=== PATIENT | male | born 1970 | race Caucasian/White ===

== ENCOUNTER 2019-06-10 06:02 | Emergency (ER) | payer SELFPAY ==
[2019-06-10] MEDS ORDERED: ASPIRIN 81 MG CHEWABLE TABLET PO ONE (06:04)
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
[2019-06-10 06:14] LABS: ABSOLUTE NEUTROPHIL COUNT 5.57; BASO % 0.1 % (0-6); HEMATOCRIT 48.4 % (42.0-52.0); HEMOGLOBIN 16.3 gm/dl (14.0-18.0); LYMPH % 20.7 % (16-45); MEAN CELL VOLUME 88.5 fl (81-97); MEAN CORPUSCULAR HEMOGLOBIN 29.8 pg (27-33); MEAN CORPUSCULAR HGB CONC 33.7 g/dl (32-36); MEAN PLATELET VOLUME 8.9 fl (7.4-10.4); MONO % 8.2 % (0-9); PLATELET COUNT 352 K/uL (130-400); RED BLOOD COUNT 5.47 M/uL (4.40-5.70); RED CELL DISTRIBUTION WIDTH 13.7 % (11.5-14.5)
[2019-06-10 06:23] LABS: BLOOD UREA NITROGEN 12 mg/dL (6-20); CREATININE 0.7 mg/dL (0.7-1.2); EST GLOMERULAR FILTRATION RATE > 60 mL/min
[2019-06-10 06:24] LABS: TOTAL PROTEIN 6.9 g/dL (6.6-8.7)
[2019-06-10 06:26] LABS: GLUCOSE,RANDOM 101 mg/dL (74-109)
[2019-06-10 06:28] LABS: ALB/GLOB RATIO 1.9 (1.1-1.8); ALBUMIN 4.5 g/dL (4.0-5.0); ALKALINE PHOSPHATASE 80 U/L (40-129); ALT/SGPT 34 U/L (<41); AST/SGOT 25 U/L (10.0-50.0)
[2019-06-10] MEDS ORDERED: KETOROLAC 30 MG/ML VIAL IVP ONE (06:31)
[2019-06-10] MEDS ORDERED: METHYLPREDNISOLONE PF 125MG/VIAL IVP ONE (07:00)
--- NOTE | 2019-06-12 09:34 | RADIOLOGY REPORT ---
EXAM: CHEST, TWO VIEWS HISTORY: PATIENT HAS CHEST PAIN. TECHNIQUE: Two views of the chest are provided along with comparison x-ray of the right shoulder done on 10/09/08. FINDINGS: The cardiomediastinal silhouette is within normal limits for size and contour. The eddie appear unremarkable. There is no radiographic evidence of a focal infiltrate or pleural effusion. No pneumothorax is noted. Within the left lower lobe, on the PA projection only, there is an 8 mm nodular density. I suspect this finding likely represent a nipple shadow. If there is further clinical concern then a follow-up PA and lateral view of the chest can be obtained in six months to document stability of finding. IMPRESSION: 1. NO RADIOGRAPHIC EVIDENCE OF AN ACUTE INTRATHORACIC PROCESS. 2. A NODULAR DENSITY IS NOTED WITHIN THE LEFT LOWER LOBE WHICH MAY REPRESENT THE NIPPLE SHADOW. IF THERE IS FURTHER CLINICAL CONCERN THEN A FOLLOW-UP PA AND LATERAL VIEW OF THE CHEST CAN BE OBTAINED IN SIX MONTHS TO DOCUMENT STABILITY OF FINDING. ALTERNATIVELY CT SCAN OF THE CHEST CAN BE OBTAINED. JOB NUMBER: [id number] [facility]
== END 2019-06-10 08:19 | disposition home or self-care (01) ==
LOC: ER 06:02
DX: R07.89 Other chest pain (principal); I10 Essential (primary) hypertension; F17.210 Nicotine dependence, cigarettes, uncomplicated
CPT/HCPCS: 71046; 80053; 84484; 85025; 85379; 93005; 93010; 96374; 96375; 99284; J1885; J2930